=== PATIENT | male | born 1980 | race Caucasian/White ===

== ENCOUNTER 2016-12-02 22:59 | Emergency (ER) | payer OTHER ==
[2016-12-02 23:12] VITALS: BP 163/93
[2016-12-02] MEDS ORDERED: Ketorolac 30 MG/ML SDV IVPUSH ONE (23:28)
[2016-12-02] MEDS ORDERED: Sodium Chloride 0.9% 10 ML Syringe FLUSH PRN (23:28)
[2016-12-02] MEDS ORDERED: Sodium Chloride 0.9% 1,000 ML IV SCH (23:30)
--- NOTE | 2016-12-02 23:42 | EDM.PDOC ---
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 He felt quite hot but not diaphoretic with it. No nausea or vomiting. The pain subsided after a few minutes he was able to carry on working until now. However he did have a great deal of difficulty getting his work. No radiation of pain into the back but he does feel going down to the bottom of his left testicle. No history of pain in similar location before. In 2008 he had onset of diverticulitis with perforation, had a colostomy for 5 months. He has had a right inguinal hernia repair with recurrence x2, he is going to be scheduling a third procedure for this. No recent illness, appetite and activities was normal during the day. No abdominal bloating or distention. Pain is still fairly strong and he would like something for pain. His last visit to emergency in September 2014 he had right lower quadrant abdominal pain, given a dose of Toradol with improvement. He elected to do watchful waiting I then further investigation, in mild elevation of lipase at 523 of the time but the pain subsided and did not come back. - Related Data Allergies/ADRs: Allergies Allergy/AdvReac Type Severity Reaction Status Date / Time morphine Allergy Severe Anaphylactic Verified 12/02/16 23:10 Shock Home Meds: Home Meds Hydrocodone/Acetaminophen [Hydrocodon-Acetaminophen 5-325] 1 - 2 each PO Q4H PRN #10 tablet 12/03/16 [Rx] Past Medical History Respiratory History: Reports: Other (see below) Other Respiratory History: alpha 1 def. 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 - Infectious Disease History Infectious Disease History: Reports: Chicken pox - Past Surgical History GI Surgical History: Reports: Colostomy (5 months), Hernia, abdominal, Hernia repair/other (And revision) Male Surgical History: Reports: None Social & Family History - Tobacco Use Smoking Status *Q: Current Every Day Smoker Years of Tobacco use: 18 Packs/Tins Daily: 0.7 Used Tobacco, but Quit: No Second Hand Smoke Exposure: No - Caffeine Use Caffeine Use: Reports: Soda - Alcohol Use Days Per Week of Alcohol Use: 1 Number of Drinks Per Day: 1 Total Drinks Per Week: 1 - Recreational Drug Use Recreational Drug Use: Yes Drug Use in Last 12 Months: Yes Recreational Drug Type: Reports: Marijuana/Hashish Recreational Drug Use Frequency: Weekly Recreational Drug Last Use: 12/02/2016 ED ROS GENERAL - Review of Systems Review Of Systems: See Below Constitutional: Reports: no symptoms. Denies: fever, chills HEENT: Reports: No symptoms Respiratory: Reports: No Symptoms Cardiovascular: Reports: No symptoms GI/Abdominal: Reports: Abdominal pain. Denies: Black stool, Bloody stool, Constipation, Diarrhea, Decreased appetite, Nausea, Vomiting : Reports: other (Pain radiating to left testicle) Musculoskeletal: Reports: no symptoms Skin: Reports: no symptoms Neurological: Reports: No Symptoms ED EXAM, GI/ABD - Physical Exam Exam: See Below Exam Limited By: No limitations General Appearance: alert, mild distress, other (Appears well, elevated systolic blood pressure otherwise vital signs normalNo difficulty speaking or breathing) Eyes: bilateral: normal appearance Ears: normal external exam Nose: normal inspection Throat/Mouth: Normal inspection Head: atraumatic, normocephalic Neck: supple, non-tender Respiratory/Chest: no respiratory distress, lungs clear, normal breath sounds, no accessory muscle use Cardiovascular: normal peripheral pulses, regular rate, rhythm GI/Abdominal: normal bowel sounds, soft, no distention, no mass, tenderness ( Left lower quadrant without guarding or rebound) (Male) Exam: Normal inspection, Other (Recurrent right inguinal hernia). No : Scrotum tenderness (R), Testicular mass, Testicular tenderness (L), Testicular tenderness (R) Back Exam: normal inspection, full range of motion Extremities: normal inspection, normal range of motion Neurological: alert, oriented, no motor/sensory deficits Psychiatric: normal affect, normal mood Skin Exam: Warm, Dry, Intact, No rash Course - Vital Signs Last Recorded V/S: Last Vital Signs Temp 36.0 C 12/02/16 23:12 Pulse 90 12/02/16 23:12 Resp 18 12/02/16 23:12 BP 163/93 H 12/02/16 23:12 Pulse Ox 98 12/02/16 23:12 - Orders/Labs/Meds Orders: Active Orders 24 hr Category Date Time Status Peripheral IV Care [RC] . DIRECTED Care 12/02/16 23:28 Active Peripheral IV Insertion Adult [OM.PC] Routine Oth 12/02/16 23:27 Ordered Labs: Laboratory Tests 12/02/16 12/02/16 12/02/16 Range/Units 23:28 23:28 23:50 WBC 8.3 (4.5-11.0) K/uL RBC 5.52 (4.30-5.90) M/uL Hgb 15.5 H (12.0-15.0) g/dL Hct 46.4 (40.0-54.0) % MCV 84 (80-98) fL MCH 28 (27-31) pg MCHC 33 (32-36) % Plt Count 339 (150-400) K/uL Sodium 142 (140-148) mmol/L Potassium 3.7 (3.6-5.2) mmol/L Chloride 104 (100-108) mmol/L Carbon Dioxide 25 (21-32) mmol/L Anion Gap 12.9 (5.0-14.0) mmol/L BUN 15 (7-18) mg/dL Creatinine 1.0 (0.8-1.3) mg/dL Est Cr Clr Drug Dosing 103.10 mL/min Estimated GFR (MDRD) > 60 (>60) Glucose 103 (74-106) mg/dL Calcium 8.3 L (8.5-10.1) mg/dL Total Bilirubin 0.7 (0.2-1.0) mg/dL AST 21 (15-37) U/L ALT 37 (12-78) U/L Alkaline Phosphatase 70 (46-116) U/L Total Protein 7.5 (6.4-8.2) g/dL Albumin 4.0 (3.4-5.0) g/dL Globulin 3.5 (2.3-3.5) g/dL Albumin/Globulin Ratio 1.1 L (1.2-2.2) Lipase 182 (73-393) U/L Urine Color Yellow Urine Appearance Clear Urine pH 5.0 (4.5-8.0) Ur Specific [place] 1.030 (1.008-1.030) Urine Protein Negative (NEGATIVE) mg/dL Urine Glucose (UA) Normal (NEGATIVE) mg/dL Urine Ketones Negative (NEGATIVE) mg/dL Urine Occult Blood Negative (NEGATIVE) Urine Nitrite Negative (NEGAITVE) Urine Bilirubin Negative (NEGATIVE) Urine Urobilinogen Normal (NORMAL) mg/dL Ur Leukocyte Esterase Negative (NEGATIVE) Urine RBC 0-5 (0-5) Urine WBC 0-5 (0-5) Ur Epithelial Cells Rare Amorphous Sediment Few Urine Bacteria Rare Urine Mucus Moderate Meds: Medications Discontinued Medications Generic Name Dose Route Start Last Admin Trade Name Freq PRN Reason Stop Dose Admin Sodium Chloride 1,000 mls @ 125 mls/hr 12/02/16 23:30 12/02/16 23:42 Normal Saline IV 125 mls/hr ASDIRECTED MAURIZIO Administration Ketorolac Tromethamine 30 mg 12/02/16 23:28 12/02/16 23:43 Toradol IVPUSH 12/02/16 23:29 30 mg ONETIME ONE Administration Sodium Chloride 10 ml 12/02/16 23:28 12/02/16 23:43 Saline Flush FLUSH 10 ml ASDIRECTED PRN Administration Keep Vein Open - Re-Assessments/Exams Free Text/Narrative Re-Assessment/Exam: 12/02/16 23:43 36-year-old male with sudden onset acute pain left lower quadrant, worse with palpation and movement, he put up with it for several hours of work before coming in. Pain is moderate currently Exam is unremarkable apart from mild tenderness left lower quadrant without any visible or palpable hernia or mass. Radiation to the left testicle but no abnormality on exam. Intravenous saline, Toradol 30 mg intravenous labs and urinalysis ordered 12/03/16 00:32 Pain is slightly improved, he is able to sleep at this point CBC normal hepatic profile normal urea creatinine normal urinalysis normal, lipase normal Differential diagnosis includes kidney stone, colitis, diverticulitis,, and others. However his benign abdominal exam together with his white count make diverticulitis less likely. Options include doing a CAT scan here or watchful waiting with pain medication which he elected the latter. See discharge instructions below Departure - Departure Time of Disposition: 00:39 Disposition: Admitted As Inpatient 67 Condition: good Clinical Impression: Left lower quadrant abdominal pain of unknown etiology Prescriptions: Hydrocodone/Acetaminophen [Hydrocodon-Acetaminophen 5-325] 1 - 2 each PO Q4H PRN #10 tablet PRN Reason: Moderate to severe pain Instructions: Abdominal Pain, Adult, [id number] Referrals: PCP,None [Primary Care Provider] - Forms: ED Department Discharge, Return to Work/School Form Additional Instructions: Based on examination tonight in with normal lab tests, it is unlikely that you have diverticulitis inflammation tonight. However it could be early and it is important for you get rechecked if her symptoms are worsening or not controllable with pain medication at home. Stick to a liquid diet only until you are better Get rechecked promptly if you have vomiting, high fevers, severe pain or other new symptoms - My Orders Last 24 Hours: My Active Orders 12/02/16 23:27 Peripheral IV Insertion Adult [OM.PC] Routine 12/02/16 23:28 Peripheral IV Care [RC] . DIRECTED - Assessment/Plan Last 24 Hours: My Active Orders 12/02/16 23:27 Peripheral IV Insertion Adult [OM.PC] Routine 12/02/16 23:28 Peripheral IV Care [RC] . DIRECTED
== END 2016-12-03 01:11 | disposition critical access hospital (66) ==
LOC: JP.ED 22:59
DX: R10.32 Left lower quadrant pain (principal); F17.210 Nicotine dependence, cigarettes, uncomplicated; Z88.5 Allergy status to narcotic agent; K21.9 Gastro-esophageal reflux disease without esophagitis
CPT/HCPCS: 36415; 80053; 81001; 83690; 85027; 96374; 99285; J1885; J7040; J7050

== ENCOUNTER 2016-12-11 08:36 | Day surgery (SDC) | payer OTHER ==
[~2016-12-11 08:36] MED LIST: Bupivacaine 0.5% 50 ML MDV ONE; Lidocaine 1% with EPINEPHrine 1:100,000 50 ML MDV ONE; Lidocaine 2% Jelly 10 ML Urojet ONE; Sodium Chloride 0.9% 1,000 ML IV SCH; ceFAZolin 2 GM in Premix Bag 1 BAG IV ONE
[2016-12-11] MEDS ORDERED: metroNIDAZOLE/Normal Saline 500 MG in Premix Bag 1 BAG IV ONE (09:00)
[2016-12-11] MEDS ORDERED: Propofol 200 MG/20 ML SDV ONE ×2 (09:38→09:56)
[2016-12-11] MEDS ORDERED: fentaNYL 100 MCG/2 ML SDV ONE (09:38)
[2016-12-11] MEDS ORDERED: Midazolam 1 MG/ML 2 ML SDV ONE (09:38)
[2016-12-11 11:43] VITALS: BP 117/65
--- NOTE | 2016-12-14 07:34 | OR ---
DATE OF PROCEDURE: 12/11/2016 PROCEDURE: Excision of thrombosed external hemorrhoid in conjunction with internal hemorrhoid. COMPLICATIONS: None. DOSIER OPERATOR: None. ANESTHESIA: MAC/local. PREOPERATIVE DIAGNOSIS: Thrombosed hemorrhoid less than 24 hours. POSTOPERATIVE DIAGNOSIS: Thrombosed hemorrhoid less than 24 hours. RISKS: Risks, benefits, alternatives, and limitations, including, but not limited to infection, bleeding, and wound formation were explained to the patient. We also discussed the fact his alpha-1 antitrypsin disorder, which can result in delayed wound healing. He was given alternatives to surgery, but declined these and understands these risks. PROCEDURE IN DETAIL: The patient was placed in prone position. The hemorrhoid which was readily palpated noted to be thrombosed was identified. This was anesthetized with 1% lidocaine. This was excised in conjunction with the internal hemorrhoid in a stephan-type fashion. This was then thoroughly irrigated. This was closed with 3-0 Vicryl in conjunction with 4-0 chromic in a running locked fashion. Gelfoam was placed in the rectum with lidocaine topical. The nursing staff instructed to inform the patient that this remains in for 24 hours. The patient tolerated the procedure well. Juanjose Nesbitt MD /[id number]
== END 2016-12-11 11:35 | disposition home or self-care (01) ==
LOC: JP.SDS 08:36
PROVIDERS: ATTEND Surgery
DX: K64.5 Perianal venous thrombosis (principal); K21.9 Gastro-esophageal reflux disease without esophagitis; E88.01 Alpha-1-antitrypsin deficiency; F17.200 Nicotine dependence, unspecified, uncomplicated
CPT/HCPCS: 46255; J0690; J2250; J2704; J3010; J7040; 88304

== ENCOUNTER 2018-03-01 22:31 | Emergency (ER) | payer MEDICAID ==
[2018-03-01 22:52] VITALS: BP 146/94
[2018-03-01] MEDS ORDERED: Ketorolac 60 MG/2 ML SDV IM ONE (23:17)
--- NOTE | 2018-03-01 23:26 | EDM.PDOC ---
ED HPI GENERAL MEDICAL PROBLEM - General Chief Complaint: Abdominal Pain Stated Complaint: PAIN IN STOMACH AREA Time Seen by Provider: 03/01/18 23:15 Source of Information: Reports: Patient, Old Records, RN History Limitations: Reports: No Limitations - History of Present Illness INITIAL COMMENTS - FREE TEXT/NARRATIVE: 37 yo male here with RLQ abdominal pain that waxes and wanes since its onset earlier tonight. Pain does radiate to his R testicle. No hematuria or hx of kidney stones. No fever. No nausea. Was sweaty when the pain was at its worst. No change in bowels. Has a pHx of a ventral hernia and a ruptured colon(from diverticulitis) requiring colostomy and later reversal. Onset: Today Onset Date: 03/01/18 Onset Time: 19:30 Duration: Waxing/Waning Location: Reports: Abdomen (RLQ) Quality: Reports: Sharp Severity: Moderate Improves with: Reports: Other (unknown) Worsens with: Reports: Other (unknown) Context: Reports: Other (unknown) Associated Symptoms: Reports: Diaphoresis (now gone). 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 (see below) (none) Right Lower Abdominal Pain Score (Numeric/FACES): 7 - Related Data Allergies Allergy/AdvReac Type Severity Reaction Status Date / Time morphine Allergy Severe Anaphylactic Verified 03/01/18 22:58 Shock Home Meds: Home Meds NK [No Known Home Meds] 03/01/18 [History] Past Medical History Respiratory History: Reports: Other (See Below) Other Respiratory History: ALPHA 1 DEFECIENCY Gastrointestinal History: Reports: Diverticulosis, GERD, Hemorrhoids Musculoskeletal History: Reports: Back Pain, Chronic, Osteoporosis, Other (See Below) Other Musculoskeletal History: anklotisis spondalitis Neurological History: Reports: Head Trauma, Migraines Psychiatric History: Reports: Addiction Endocrine/Metabolic History: Reports: Obesity/BMI 30+ Dermatologic History: Reports: Other (See Below) Other Dermatologic History: luz danlows syndrome - Infectious Disease History Infectious Disease History: Reports: Chicken Pox - Past Surgical History GI Surgical History: Reports: Colostomy, Hernia, Abdominal, Hernia Repair/Other Male Surgical History: Reports: None Endocrine Surgical History: Reports: None Musculoskeletal Surgical History: Reports: Carpal Tunnel Social & Family History - Tobacco Use Smoking Status *Q: Current Every Day Smoker Years of Tobacco use: 16 Packs/Tins Daily: 1 - Caffeine Use Caffeine Use: Reports: Soda - Recreational Drug Use Recreational Drug Use: Yes Drug Use in Last 12 Months: Yes Recreational Drug Type: Reports: Marijuana/Hashish 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 Recreational Drug Use Frequency: Daily ED ROS GENERAL - Review of Systems Review Of Systems: See Below Constitutional: Reports: Diaphoresis (now gone) HEENT: Reports: No Symptoms Respiratory: Reports: No Symptoms Cardiovascular: Reports: No Symptoms GI/Abdominal: Reports: Abdominal Pain (RLQ) : Reports: Other (pain radiates to R testicle.) Musculoskeletal: Reports: No Symptoms Skin: Reports: No Symptoms Neurological: Reports: No Symptoms ED EXAM, GI/ABD - Physical Exam Exam: See Below Exam Limited By: No Limitations General Appearance: Alert, WD/WN, No Apparent Distress Eyes: Bilateral: Normal Appearance Ears: Normal External Exam, Normal Canal, Hearing Grossly Normal Nose: Normal Inspection, Normal Mucosa, No Blood Throat/Mouth: Normal Inspection, Normal Lips, Normal Oropharynx, Normal Voice, No Airway Compromise Head: Atraumatic, Normocephalic Neck: Normal Inspection Respiratory/Chest: No Respiratory Distress, Lungs Clear, Normal Breath Sounds, No Accessory Muscle Use Cardiovascular: Regular Rate, Rhythm, No Edema GI/Abdominal Exam: Normal Bowel Sounds, Soft, No Distention, Tender (mild RLQ pain, not significantly worse with palpation. ) (Male) Exam: No Hernia, Normal Inspection. No: Testicular Tenderness (R) Back Exam: Normal Inspection Extremities: Normal Inspection, Normal Range of Motion, Non-Tender, No Pedal Edema Neurological: Alert, Oriented, CN II-XII Intact, Normal Cognition, No Motor/ Sensory Deficits Psychiatric: Normal Affect, Normal Mood Skin Exam: Warm, Dry, Intact, Normal Color, No Rash Lymphatic: No Adenopathy Course - Vital Signs Text/Narrative:: Pain mostly gone after Toradol. Last Recorded V/S: Last Vital Signs Temp 36.0 C 03/01/18 23:00 Pulse 88 03/01/18 23:00 Resp 15 03/01/18 23:00 BP 146/94 H 03/01/18 23:00 Pulse Ox 98 03/01/18 23:00 - Orders/Labs/Meds Orders: Active Orders 24 hr Category Date Time Status UA W/MICROSCOPIC [URIN] Stat Lab 03/02/18 00:22 Ordered Labs: Laboratory Tests 03/02/18 03/02/18 Range/Units 00:22 01:00 WBC 7.0 (4.5-11.0) K/uL RBC 4.89 (4.30-5.90) M/uL Hgb 14.2 (12.0-15.0) g/dL Hct 42.2 (40.0-54.0) % MCV 86 (80-98) fL MCH 29 (27-31) pg MCHC 34 (32-36) % Plt Count 298 (150-400) K/uL Urine Color Yellow Urine Appearance Clear Urine pH 5.0 (4.5-8.0) Ur Specific [place] 1.025 (1.008-1.030) Urine Protein Negative (NEGATIVE) mg/dL Urine Glucose (UA) Normal (NEGATIVE) mg/dL Urine Ketones Negative (NEGATIVE) mg/dL Urine Occult Blood Negative (NEGATIVE) Urine Nitrite Negative (NEGAITVE) Urine Bilirubin Negative (NEGATIVE) Urine Urobilinogen 1 (NORMAL) mg/dL Ur Leukocyte Esterase Negative (NEGATIVE) Urine RBC 0-5 (0-5) Urine WBC 0-5 (0-5) Ur Epithelial Cells Rare Amorphous Sediment Not seen Urine Bacteria Few Urine Mucus Not seen Meds: Medications Discontinued Medications Generic Name Dose Route Start Last Admin Trade Name Freq PRN Reason Stop Dose Admin Ketorolac Tromethamine 60 mg 03/01/18 23:17 03/01/18 23:24 Toradol IM 03/01/18 23:18 60 mg ONETIME ONE Administration Departure - Departure Time of Disposition: 01:09 Disposition: Home, Self-Care 01 Condition: Good Clinical Impression: Abdominal pain, RLQ - Discharge Information Referrals: PCP,None [Primary Care Provider] - Forms: ED Department Discharge - My Orders Last 24 Hours: My Active Orders 03/02/18 00:22 UA W/MICROSCOPIC [URIN] Stat - Assessment/Plan Last 24 Hours: My Active Orders 03/02/18 00:22 UA W/MICROSCOPIC [URIN] Stat
== END 2018-03-02 01:16 | disposition home or self-care (01) ==
LOC: JP.ED 22:31
DX: R10.31 Right lower quadrant pain (principal); F17.210 Nicotine dependence, cigarettes, uncomplicated; K21.9 Gastro-esophageal reflux disease without esophagitis; Z88.5 Allergy status to narcotic agent
CPT/HCPCS: 36415; 81001; 85027; 96372; 99284; J1885

== ENCOUNTER 2019-03-10 06:21 | Day surgery (SDC) | payer MEDICAID ==
[2019-03-10] MEDS ORDERED: Lidocaine 1% with EPINEPHrine 1:100,000 50 ML MDV ONE (06:34)
[2019-03-10] MEDS ORDERED: Bupivacaine 0.5% 50 ML MDV ONE (06:34)
[2019-03-10] MEDS ORDERED: Propofol 200 MG/20 ML SDV ONE (07:21)
[2019-03-10] MEDS ORDERED: Glycopyrrolate 0.2 MG/ML 5 ML MDV ONE (07:21)
[2019-03-10] MEDS ORDERED: Dexamethasone 4 MG/ML SDV ONE (07:21)
[2019-03-10] MEDS ORDERED: Midazolam 1 MG/ML 2 ML SDV ONE (07:21)
[2019-03-10] MEDS ORDERED: fentaNYL 250 MCG/5 ML SDV ONE (07:21)
[2019-03-10] MEDS ORDERED: Ondansetron 4 MG/2 ML SDV ONE (07:21)
[2019-03-10] MEDS ORDERED: Neostigmine Methylsulfate 1 MG/ML 5 ML Syringe ONE (07:21)
[2019-03-10] MEDS ORDERED: Rocuronium 50 MG/5 ML Vial ONE (07:21)
[2019-03-10] MEDS ORDERED: Sodium Chloride 0.9% 1,000 ML IV SCH (07:30)
[2019-03-10] MEDS ORDERED: ceFAZolin 2 GM in Premix Bag 1 BAG IV ONE (08:00)
[2019-03-10] MEDS ORDERED: metroNIDAZOLE/Normal Saline 500 MG in Premix Bag 1 BAG IV ONE (08:30)
[2019-03-10] MEDS ORDERED: Acetaminophen/HYDROcodone 325-5 MG Tab PO PRN (10:15)
--- NOTE | 2019-03-10 11:28 | OR ---
DATE OF PROCEDURE: 03/10/2019 PROCEDURE: Right inguinal hernia repair. FINDINGS: Non-incarcerated indirect hernia. RISKS: Risks, benefits, alternatives, and limitations including, but not limited to, infection, bleeding, and injury to bowel and bladder, requirement for reoperation, seroma, and hematoma were all explained to the patient who wished to proceed. ANESTHETIC: General/local. PROCEDURE IN DETAIL: The patient was placed in supine position. The right groin was prepped and draped. A curvilinear incision was made of approximately 5 cm in size. This was carried down to the external oblique aponeurosis. This was opened with a 15 blade and subsequently with Metzenbaum scissors. There was significant scarring due to his previous abdominal surgery in this area. The cord structures were identified and surrounded with a [place] drain. The hernia was readily identified and able to be reduced. An extra-large plug and patch was then sutured into place using interrupted 2-0 Vicryl sutures. The mesh was also stitched in proximity to the pubic symphysis and around it approximately 1 cm aliquots. The tails were tied together. The external oblique aponeurosis was then approximated with 3-0 Vicryl, subcutaneous tissue closed with 3-0 Vicryl, and skin was closed with 4-0 Vicryl in running fashion. Dermabond was applied. The patient tolerated the procedure well. Juanjose Nesbitt MD /[id number]
--- NOTE | 2019-03-10 11:55 | OR ---
DATE OF PROCEDURE: 03/10/2019 PROCEDURE: Bilateral transversus abdominis plane blocks. COMPLICATIONS: None. RESIDENT CARE MANAGER RN: None. RISKS: Risks, benefits, alternatives, and limitations including, but not limited to infection, bleeding, and injury to abdominal structures were explained to the patient. PROCEDURE IN DETAIL: The patient was placed in supine position. The right side was addressed first. This was accessed using 11 megahertz ultrasound probe guidance. Needle was advanced under direct visualization and approximately 80% solution was injected in transversus plane. Left side was then performed in a same manner, same fashion, same technique, and same sequence using same equipment except for different needle and syringe. The patient tolerated the procedure well. Juanjose Nesbitt MD /[id number]
[2019-03-10 12:41] VITALS: BP 126/65
== END 2019-03-10 13:30 | disposition home or self-care (01) ==
LOC: JP.SDS 06:21
PROVIDERS: ATTEND Surgery
DX: K40.90 Unilateral inguinal hernia, without obstruction or gangrene, not specified as recurrent (principal); F17.210 Nicotine dependence, cigarettes, uncomplicated; G56.03 Carpal tunnel syndrome, bilateral upper limbs; E88.01 Alpha-1-antitrypsin deficiency; G89.18 Other acute postprocedural pain; M54.5 Low back pain; M45.9 Ankylosing spondylitis of unspecified sites in spine
CPT/HCPCS: 49505; 64488; A9270; C1781; J0171; J0690; J1100; J2250; J2405; J2704; J2710; J2795; J3010; J3490; J7030; J7050

== ENCOUNTER 2019-08-25 21:26 | Emergency (ER) | payer SELFPAY ==
[2019-08-25 21:47] VITALS: BP 126/73; PULSE 76
[2019-08-25] MEDS ORDERED: HYDROmorphone 0.5 MG/0.5 ML Syringe IVPUSH ONE (22:01)
--- NOTE | 2019-08-25 22:06 | EDM.PDOC ---
ED HPI GENERAL MEDICAL PROBLEM - General Chief Complaint: Abdominal Pain Stated Complaint: ABD PAIN Time Seen by Provider: 08/25/19 21:50 Source of Information: Reports: Patient, Old Records, RN History Limitations: Reports: No Limitations - History of Present Illness INITIAL COMMENTS - FREE TEXT/NARRATIVE: 39 yo male presents with RLQ/groin pain. Has had this intermittently in the past couple of years and it generally goes away by itself so he has not come in for it. Today his pain is worse and lasting longer. No vomiting, constipation, hematuria, diarrhea, or fever. Has a pHx of a ruptured diverticulum and resulting colostomy and later a reversal. Also has had 2 R inguinal hernia repairs. 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) (none) Abdominal Pain Score (Numeric/FACES): 7 - Related Data Allergies Allergy/AdvReac Type Severity Reaction Status Date / Time morphine Allergy Severe Anaphylactic Verified 08/25/19 21:41 Shock Home Meds: Home Meds NK [No Known Home Meds] 08/25/19 [History] Past Medical History Respiratory History: Reports: Other (See Below) Other Respiratory History: ALPHA 1 DEFECIENCY Gastrointestinal History: Reports: Diverticulosis, GERD, Hemorrhoids Musculoskeletal History: Reports: Back Pain, Chronic, Osteoporosis, Other (See Below) Other Musculoskeletal History: anklotisis spondalitis Neurological History: Reports: Head Trauma, Migraines Psychiatric History: Reports: Addiction Endocrine/Metabolic History: Reports: Obesity/BMI 30+ Dermatologic History: Reports: Other (See Below) Other Dermatologic History: luz danlows syndrome - Infectious Disease History Infectious Disease History: Reports: Chicken Pox - Past Surgical History GI Surgical History: Reports: Colostomy, Hernia Repair/Other Male Surgical History: Reports: None Endocrine Surgical History: Reports: None Neurological Surgical History: Reports: None Musculoskeletal Surgical History: Reports: Carpal Tunnel Social & Family History - Family History Family Medical History: Noncontributory - Tobacco Use Smoking Status *Q: Current Every Day Smoker Years of Tobacco use: 20 Packs/Tins Daily: 0.5 - Caffeine Use Caffeine Use: Reports: Soda - Recreational Drug Use Recreational Drug Use: Yes Drug Use in Last 12 Months: Yes Recreational Drug Type: Reports: Marijuana/Hashish Recreational Drug Use Frequency: Daily ED ROS GENERAL - Review of Systems Review Of Systems: See Below Constitutional: Reports: No Symptoms HEENT: Reports: No Symptoms Respiratory: Reports: No Symptoms Cardiovascular: Reports: No Symptoms GI/Abdominal: Reports: Abdominal Pain (RLQ). Denies: Black Stool, Bloody Stool , Constipation, Diarrhea, Distension, Hematemesis, Hematochezia, Melena, Nausea , Vomiting : Reports: No Symptoms. Denies: Dysuria, Hematuria Musculoskeletal: Reports: No Symptoms Skin: Reports: No Symptoms Neurological: Reports: No Symptoms ED EXAM, GI/ABD - Physical Exam Exam: See Below Exam Limited By: No Limitations General Appearance: Alert, WD/WN, No Apparent Distress, Obese Eyes: Bilateral: Normal Appearance Ears: Hearing Grossly Normal Nose: Normal Inspection, No Blood Throat/Mouth: Normal Inspection, Normal Lips, Normal Oropharynx, Normal Voice, No Airway Compromise Head: Atraumatic, Normocephalic Neck: Normal Inspection Respiratory/Chest: No Respiratory Distress, Lungs Clear, Normal Breath Sounds, No Accessory Muscle Use Cardiovascular: Regular Rate, Rhythm, No Edema GI/Abdominal Exam: Normal Bowel Sounds, Soft, No Distention, Tender (RLQ), Abnormal Bowel Sounds (decreased), Other (obese). No: Non-Tender, Distended, Guarding, Rigid, Rebound Extremities: Normal Inspection, Normal Range of Motion, Non-Tender, No Pedal Edema Neurological: Alert, Oriented, CN II-XII Intact, Normal Cognition, No Motor/ Sensory Deficits Psychiatric: Normal Affect, Normal Mood Skin Exam: Warm, Dry, Intact, Normal Color, No Rash, Other (surgical scar R groin, old) Course - Vital Signs Last Recorded V/S: Last Vital Signs Temp 35.9 C 08/25/19 21:41 Pulse 76 08/25/19 21:41 Resp 16 08/25/19 21:41 BP 126/73 08/25/19 21:41 Pulse Ox 95 08/25/19 21:41 - Orders/Labs/Meds Orders: Active Orders 24 hr Category Date Time Status Iopamidol [Isovue-300 (61%)] Med 08/25/19 22:30 Active 100 ml IV . DIRECTED Sodium Chloride 0.9% [Normal Saline] 80 ml Med 08/25/19 22:30 Active IV ASDIRECTED Sodium Chloride 0.9% [Saline Flush] Med 08/25/19 22:00 Active 10 ml FLUSH ASDIRECTED PRN Saline Lock Insert [OM.PC] Routine Oth 08/25/19 22:00 Ordered Medication Orders Sodium Chloride (Normal Saline) 80 mls @ 3 mls/sec IV ASDIRECTED MAURIZIO Last Admin: 08/25/19 22:34 Dose: 3 mls/sec Iopamidol (Isovue-300 (61%)) 100 ml IV . DIRECTED MAURIZIO Last Admin: 08/25/19 22:34 Dose: 100 ml Sodium Chloride (Saline Flush) 10 ml FLUSH ASDIRECTED PRN PRN Reason: Keep Vein Open Last Admin: 08/25/19 22:34 Dose: 10 ml Admin: 08/25/19 22:10 Dose: 10 ml Labs: Laboratory Tests 08/25/19 08/25/19 08/25/19 Range/Units 22:08 22:08 23:52 WBC 8.9 (4.5-11.0) K/uL RBC 5.31 (4.30-5.90) M/uL Hgb 14.7 (12.0-15.0) g/dL Hct 45.7 (40.0-54.0) % MCV 86 (80-98) fL MCH 28 (27-31) pg MCHC 32 (32-36) % Plt Count 326 (150-400) K/uL Sodium 139 L (140-148) mmol/L Potassium 3.8 (3.6-5.2) mmol/L Chloride 102 (100-108) mmol/L Carbon Dioxide 26 (21-32) mmol/L Anion Gap 14.8 H (5.0-14.0) mmol/L BUN 19 H (7-18) mg/dL Creatinine 1.2 (0.8-1.3) mg/dL Est Cr Clr Drug Dosing 83.47 mL/min Estimated GFR (MDRD) > 60 (>60) Glucose 81 (74-106) mg/dL Calcium 8.6 (8.5-10.1) mg/dL Urine Color Yellow (YELLOW) Urine Appearance Clear (CLEAR) Urine pH 5.0 (5.0-8.0) Ur Specific [place] 1.010 (1.008-1.030) Urine Protein Negative (NEGATIVE) mg/dL Urine Glucose (UA) Negative (NEGATIVE) mg/dL Urine Ketones Negative (NEGATIVE) mg/dL Urine Occult Blood Negative (NEGATIVE) Urine Nitrite Negative (NEGATIVE) Urine Bilirubin Negative (NEGATIVE) Urine Urobilinogen 0.2 (0.2-1.0) EU/dL Ur Leukocyte Esterase Negative (NEGATIVE) Urine RBC 0-5 (0-5) Urine WBC 0-5 (0-5) Ur Epithelial Cells Rare Amorphous Sediment Not seen Urine Bacteria Not seen Urine Mucus Not seen Meds: Medications Generic Name Dose Route Start Last Admin Trade Name Freq PRN Reason Stop Dose Admin Sodium Chloride 80 mls @ 3 mls/sec 08/25/19 22:30 08/25/19 22:34 Normal Saline IV 3 mls/sec ASDIRECTED MAURIZIO Administration Iopamidol 100 ml 08/25/19 22:30 08/25/19 22:34 Isovue-300 (61%) IV 100 ml . DIRECTED MAURIZIO Administration Sodium Chloride 10 ml 08/25/19 22:00 08/25/19 22:34 Saline Flush FLUSH 10 ml ASDIRECTED PRN Administration Keep Vein Open Discontinued Medications Generic Name Dose Route Start Last Admin Trade Name Freq PRN Reason Stop Dose Admin Hydromorphone HCl 0.5 mg 08/25/19 22:01 08/25/19 22:10 Dilaudid IVPUSH 08/25/19 22:02 0.5 mg ONETIME ONE Administration Lactated Ringer's 1,000 mls @ 1,000 mls/hr 08/25/19 22:41 08/25/19 22:46 Ringers, Lactated IV 08/25/19 23:40 1,000 mls/hr BOLUS ONE Administration - Radiology Interpretation Free Text/Narrative:: CT abd/pelvs with IV contrast-IMPRESSION: No acute abnormality identified to explain the patient`s symptoms. Please note that all CT scans at this facility use dose modulation, iterative reconstruction, and/or weight-based dosing when appropriate to reduce radiation dose to as low as reasonably achievable. Dictated by Christa Tello MD CT Results Date: 08/25/19 Departure - Departure Time of Disposition: 00:13 Disposition: Home, Self-Care 01 Condition: Fair Clinical Impression: RLQ abdominal pain - Discharge Information *PRESCRIPTION DRUG MONITORING PROGRAM REVIEWED*: No *COPY OF PRESCRIPTION DRUG MONITORING REPORT IN PATIENT JUJU: No Instructions: Abdominal Pain, Adult, [id number] Referrals: PCP,None [Primary Care Provider] - Forms: ED Department Discharge Additional Instructions: Clear liquids only tonight. Advance diet as tolerated. F/U with your provider next week in the clinic. Return as needed. Sepsis Event Note - Evaluation Sepsis Screening Result: No Definite Risk - Focused Exam Vital Signs: Vital Signs Temp Pulse Resp BP Pulse Ox 08/25/19 21:41 35.9 C 76 16 126/73 95 08/25/19 21:40 35.9 C 76 16 126/73 95 Date Exam was Performed: 08/26/19 Time Exam was Performed: 00:13 - My Orders Last 24 Hours: My Active Orders 08/25/19 22:00 Sodium Chloride 0.9% [Saline Flush] 10 ml FLUSH ASDIRECTED PRN Saline Lock Insert [OM.PC] Routine 08/25/19 22:30 Iopamidol [Isovue-300 (61%)] 100 ml IV . DIRECTED Sodium Chloride 0.9% [Normal Saline] 80 ml IV ASDIRECTED - Assessment/Plan Last 24 Hours: My Active Orders 08/25/19 22:00 Sodium Chloride 0.9% [Saline Flush] 10 ml FLUSH ASDIRECTED PRN Saline Lock Insert [OM.PC] Routine 08/25/19 22:30 Iopamidol [Isovue-300 (61%)] 100 ml IV . DIRECTED Sodium Chloride 0.9% [Normal Saline] 80 ml IV ASDIRECTED
[2019-08-25] MEDS: Sodium Chloride 0.9% 10 ML Syringe FLUSH PRN ×2 (22:10→22:34)
[2019-08-25] MEDS ORDERED: Iopamidol 612 MG/ML 100 ML Bottle IV SCH (22:30)
[2019-08-25] MEDS ORDERED: Sodium Chloride 0.9% 80 ML IV SCH (22:30)
[2019-08-25] MEDS ORDERED: Lactated Ringers 1,000 ML IV ONE (22:41)
--- NOTE | 2019-08-25 23:23 | CRLCT ---
HISTORY: Right lower quadrant pain. COMPARISON: 03/03/2019. TECHNIQUE: Axial images were obtained through the abdomen and pelvis following 100 cc of Isovue-300 intravenous contrast. FINDINGS: The lung bases are clear. The liver, small pancreas, gallbladder, adrenal glands and kidneys are within normal. The appendix is normal in caliber. No evidence for bowel obstruction or bowel hernia. Rectosigmoid anastomosis. No evidence for lymphadenopathy or ascites. The bones within normal. IMPRESSION: No acute abnormality identified to explain the patient`s symptoms. Please note that all CT scans at this facility use dose modulation, iterative reconstruction, and/or weight-based dosing when appropriate to reduce radiation dose to as low as reasonably achievable. Dictated by Christa Tello MD @ Aug 25 2019 11:15PM Signed by Dr. Christa Tello @ Aug 25 2019 11:21PM
== END 2019-08-26 00:27 | disposition home or self-care (01) ==
LOC: JP.ED 21:26
DX: R10.31 Right lower quadrant pain (principal); E66.9 Obesity, unspecified; Z68.38 Body mass index [BMI] 38.0-38.9, adult; Z88.5 Allergy status to narcotic agent; F17.210 Nicotine dependence, cigarettes, uncomplicated
CPT/HCPCS: 36415; 74177; 80048; 81001; 85027; 96361; 96374; 99284-25; J1170; J7050; J7120; Q9967

== ENCOUNTER 2020-01-04 19:42 | Emergency (ER) | payer MEDICAID ==
[2020-01-04 19:59] VITALS: BP 166/99; PULSE 71
[2020-01-04] MEDS ORDERED: Baclofen 10 MG Tab PO ONE (20:11)
[2020-01-04] MEDS ORDERED: Ketorolac 60 MG/2 ML SDV IM ONE (20:11)
--- NOTE | 2020-01-04 20:19 | EDM.PDOC ---
ED HPI GENERAL MEDICAL PROBLEM - General Chief Complaint: Lower Extremity Injury/Pain Stated Complaint: L CALF PAIN Time Seen by Provider: 01/04/20 20:14 Source of Information: Reports: Patient History Limitations: Reports: No Limitations - History of Present Illness INITIAL COMMENTS - FREE TEXT/NARRATIVE: pt was playing basketball at [employer] and he jumped up and developed severe pain in the left calf of his leg. He is not on blood thinners. He does have some very large varicosities. Onset: Today, Sudden Duration: Hour(s): Location: Reports: Lower Extremity, Right Associated Symptoms: Reports: No Other Symptoms - Related Data Allergies Allergy/AdvReac Type Severity Reaction Status Date / Time morphine Allergy Severe Anaphylactic Verified 01/04/20 19:56 Shock Home Meds: Home Meds NK [No Known Home Meds] 08/25/19 [History] Past Medical History Respiratory History: Reports: Other (See Below) Other Respiratory History: ALPHA 1 DEFECIENCY Gastrointestinal History: Reports: Diverticulosis, GERD, Hemorrhoids Musculoskeletal History: Reports: Back Pain, Chronic, Osteoporosis, Other (See Below) Other Musculoskeletal History: anklotisis spondalitis Neurological History: Reports: Head Trauma, Migraines Psychiatric History: Reports: Addiction Endocrine/Metabolic History: Reports: Obesity/BMI 30+ Dermatologic History: Reports: Other (See Below) Other Dermatologic History: luz danlows syndrome - Infectious Disease History Infectious Disease History: Reports: Chicken Pox - Past Surgical History GI Surgical History: Reports: Colonoscopy, Colostomy, Hernia Repair/Other, Other (See Below) Other GI Surgeries/Procedures: colostomy take down Male Surgical History: Reports: None Endocrine Surgical History: Reports: None Neurological Surgical History: Reports: None Musculoskeletal Surgical History: Reports: Carpal Tunnel Social & Family History - Family History Family Medical History: Noncontributory - Tobacco Use Smoking Status *Q: Current Every Day Smoker Years of Tobacco use: 20 Packs/Tins Daily: 0.5 - Caffeine Use Caffeine Use: Reports: Soda - Recreational Drug Use Recreational Drug Use: Yes Recreational Drug Type: Reports: Marijuana/Hashish, Methamphetamine Recreational Drug Use Frequency: Daily Review of Systems - Review of Systems Review Of Systems: See Below Constitutional: Reports: No Symptoms Eyes: Reports: No Symptoms Ears: Reports: No Symptoms Nose: Reports: No Symptoms Mouth/Throat: Reports: No Symptoms Respiratory: Reports: No Symptoms Cardiovascular: Reports: No Symptoms GI/Abdominal: Reports: No Symptoms Genitourinary: Reports: No Symptoms Musculoskeletal: Reports: Other ( pain in the rt calf of the leg. ) Skin: Reports: No Symptoms Neurological: Reports: No Symptoms ED EXAM, GENERAL - Physical Exam Exam: See Below Free Text/Narrative:: pt arrived having severe pain in the rt calf. It feels very tight. He is having alot of pain when he walks on it . It started when he jumped up quickly. Exam Limited By: No Limitations General Appearance: Alert, Anxious Extremities: Other ( rt calf is tight and very tender. It measures the same as his other calf. He has good pulses and his foot is warm. ) Neurological: Alert, Oriented, Normal Cognition Psychiatric: Anxious Course - Vital Signs Last Recorded V/S: Last Vital Signs Temp 36.8 C 01/04/20 20:00 Pulse 71 01/04/20 20:00 Resp 16 01/04/20 20:00 BP 166/99 H 01/04/20 20:00 Pulse Ox 94 L 01/04/20 20:00 - Orders/Labs/Meds Orders: Active Orders 24 hr Category Date Time Status VL Duplex Lwr Ext Veins Ltd Lt [US] Stat Exams 01/04/20 20:10 Ordered Meds: Medications Discontinued Medications Generic Name Dose Route Start Last Admin Trade Name Freq PRN Reason Stop Dose Admin Baclofen 10 mg 01/04/20 20:11 01/04/20 20:26 Lioresal PO 01/04/20 20:12 10 mg ONETIME ONE Administration Ketorolac Tromethamine 60 mg 01/04/20 20:11 01/04/20 20:26 Toradol IM 01/04/20 20:12 60 mg ONETIME ONE Administration - Re-Assessments/Exams Free Text/Narrative Re-Assessment/Exam: 01/04/20 21:14 pt had a US which showed a fluid collection-- He has a hematoma forming. Departure - Departure Time of Disposition: 21:15 Disposition: Home, Self-Care 01 Condition: Fair Clinical Impression: Hematoma of lower leg - Discharge Information Referrals: PCP,None [Primary Care Provider] - Forms: ED Department Discharge Care Plan Goals: ice pack to the calf for the next 24 hours. , elevate the leg, tylenol 650 q6h prn for pain. tonight then start motrin 800mg q6h. crutches. Sepsis Event Note - Evaluation Sepsis Screening Result: No Definite Risk - Focused Exam Vital Signs: Vital Signs Temp Pulse Resp BP Pulse Ox 01/04/20 20:00 36.8 C 71 16 166/99 H 94 L 01/04/20 19:55 36.8 C 71 16 166/99 H 94 L Date Exam was Performed: 01/04/20 Time Exam was Performed: 21:14 - My Orders Last 24 Hours: My Active Orders 01/04/20 20:10 VL Duplex Lwr Ext Veins Ltd Lt [US] Stat - Assessment/Plan Last 24 Hours: My Active Orders 01/04/20 20:10 VL Duplex Lwr Ext Veins Ltd Lt [US] Stat
--- NOTE | 2020-01-04 21:41 | CRLUS ---
INDICATION: Severe left calf pain. COMPARISON: None available. FINDINGS: Ultrasound of the venous drainage of the left lower extremity shows no evidence of deep venous thrombosis. There is normal antegrade flow from the posterior tibial and peroneal veins superiorly through the common femoral vein. There is normal augmentation and compressibility of these veins. The greater saphenous vein in the thigh is widely patent. In the medial distal calf in the area of pain there is a thin fluid collection without increased color Doppler flow located within the muscle belly. This measures 8.4 x 1.0 x 0.8 centimeters and may be an intramuscular or tendon sheath hematoma. The right common femoral vein is widely patent. IMPRESSION: No evidence of deep venous thrombosis on ultrasound examination of the left lower extremity. Fluid collection located within the muscularis structures of the medial distal calf in the area pain. Nonspecific, but could represent intramuscular or tendon sheath hematoma. Dictated by Zackery Gonzalez MD @ Jan 04 2020 9:37PM Signed by Dr. Zackery Gonzalez @ Jan 04 2020 9:40PM
== END 2020-01-04 21:45 | disposition home or self-care (01) ==
LOC: JP.ED 19:42
DX: S80.12XA Contusion of left lower leg, initial encounter (principal); E66.9 Obesity, unspecified; F17.210 Nicotine dependence, cigarettes, uncomplicated; Z88.5 Allergy status to narcotic agent; Z68.38 Body mass index [BMI] 38.0-38.9, adult; W22.8XXA Striking against or struck by other objects, initial encounter
CPT/HCPCS: 93971; 96372; 99283; A9270; J1885

== ENCOUNTER 2020-01-29 13:28 | Emergency (ER) | payer MEDICAID ==
[2020-01-29 14:00] VITALS: BP 148/79; PULSE 81
--- NOTE | 2020-01-29 14:20 | EDM.PDOC ---
ED HPI GENERAL MEDICAL PROBLEM - General Chief Complaint: Lower Extremity Injury/Pain Stated Complaint: LEFT LEG ISSUES- REDNESS,SWELLING Time Seen by Provider: 01/29/20 14:13 Source of Information: Reports: Patient History Limitations: Reports: No Limitations - History of Present Illness INITIAL COMMENTS - FREE TEXT/NARRATIVE: Patient comes here from residential chemical dependency treatment. 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 Left Feet Pain Score (Numeric/FACES): 6 - Related Data Allergies Allergy/AdvReac Type Severity Reaction Status Date / Time morphine Allergy Severe Anaphylactic Verified 01/04/20 19:56 Shock Home Meds: Home Meds Amoxicillin 500 mg PO TID 01/29/20 [History] Doxycycline [Vibramycin] 100 mg PO BID 10 Days #20 cap 01/29/20 [Rx] Past Medical History Respiratory History: Reports: Other (See Below) Other Respiratory History: ALPHA 1 DEFECIENCY Gastrointestinal History: Reports: Diverticulosis, GERD, Hemorrhoids Musculoskeletal History: Reports: Back Pain, Chronic, Osteoporosis, Other (See Below) Other Musculoskeletal History: anklotisis spondalitis Neurological History: Reports: Head Trauma, Migraines Psychiatric History: Reports: Addiction Endocrine/Metabolic History: Reports: Obesity/BMI 30+ Dermatologic History: Reports: Other (See Below) Other Dermatologic History: luz danlows syndrome - Infectious Disease History Infectious Disease History: Reports: Chicken Pox - Past Surgical History GI Surgical History: Reports: Colonoscopy, Colostomy, Hernia Repair/Other, Other (See Below) Other GI Surgeries/Procedures: colostomy take down Male Surgical History: Reports: None Endocrine Surgical History: Reports: None Neurological Surgical History: Reports: None Musculoskeletal Surgical History: Reports: Carpal Tunnel Social & Family History - Family History Family Medical History: Noncontributory - Tobacco Use Smoking Status *Q: Heavy Tobacco Smoker Years of Tobacco use: 15 Packs/Tins Daily: 1 - Caffeine Use Caffeine Use: Reports: Coffee - Recreational Drug Use Recreational Drug Use: No Review of Systems - Review of Systems Review Of Systems: See Below Constitutional: Denies: Chills, Fever Ears: Denies: Dizziness Respiratory: Reports: No Symptoms Cardiovascular: Reports: No Symptoms GI/Abdominal: Reports: No Symptoms Musculoskeletal: Reports: Leg Pain, Joint Swelling (Swelling of left ankle and foot) ED EXAM, GENERAL - Physical Exam Exam: See Below Exam Limited By: No Limitations General Appearance: Alert, Obese Nose: Normal Inspection Throat/Mouth: Normal Inspection Respiratory/Chest: No Respiratory Distress, Lungs Clear Cardiovascular: Normal Peripheral Pulses, Regular Rate, Rhythm GI/Abdominal: Soft, Non-Tender, Other (Obese) Extremities: Joint Swelling, Increased Warmth, Other (Marked erythema and swelling of his left foot especially as compared to the right. He also has tenderness on palpation of medial and lateral malleoli and the lateral proximal part of his leg.) Course - Vital Signs Text/Narrative:: differential diagnosis: Cellulitis, ankle fracture, ankle sprain, DVT, severe muscle strain. Ultrasound was negative for DVT. X-rays were negative for any fracture. Given the swelling, erythema, pain, and warmth of his right foot and ankle I am going to treat him for cellulitis with doxycycline. I have instructed him to stop amoxicillin. Last Recorded V/S: Last Vital Signs Temp 36.6 C 01/29/20 14:00 Pulse 81 01/29/20 14:00 Resp 16 01/29/20 14:00 BP 148/79 H 01/29/20 14:00 Pulse Ox 96 01/29/20 14:00 - Orders/Labs/Meds Orders: Active Orders 24 hr Category Date Time Status Extremity Non Vascular Lt [US] Stat Exams 01/29/20 15:58 Stop Req VL Duplex Lwr Ext Veins Ltd Lt [US] Stat Exams 01/29/20 16:08 Ordered Labs: Laboratory Tests 01/29/20 01/29/20 01/29/20 Range/Units 14:45 14:45 14:45 WBC 7.4 (4.5-11.0) K/uL RBC 4.88 (4.30-5.90) M/uL Hgb 13.7 (12.0-15.0) g/dL Hct 42.7 (40.0-54.0) % MCV 88 (80-98) fL MCH 28 (27-31) pg MCHC 32 (32-36) % Plt Count 332 (150-400) K/uL ESR 13 (0-20) mm/hr PT 9.7 (9.5-12.0) sec INR 0.89 (0.80-1.20) D-Dimer, Quantitative (0.0-400.0) ng/mL Sodium 138 L (140-148) mmol/L Potassium 4.2 (3.6-5.2) mmol/L Chloride 101 (100-108) mmol/L Carbon Dioxide 28 (21-32) mmol/L Anion Gap 13.2 (5.0-14.0) mmol/L BUN 17 (7-18) mg/dL Creatinine 1.2 (0.8-1.3) mg/dL Est Cr Clr Drug Dosing 83.47 mL/min Estimated GFR (MDRD) > 60 (>60) Glucose 93 (74-106) mg/dL Lactic Acid (0.4-2.0) mmol/L Calcium 8.8 (8.5-10.1) mg/dL Total Bilirubin 0.3 D (0.2-1.0) mg/dL AST 25 (15-37) U/L ALT 54 (12-78) U/L Alkaline Phosphatase 88 (46-116) U/L Total Protein 7.4 (6.4-8.2) g/dL Albumin 4.0 (3.4-5.0) g/dL Globulin 3.4 (2.3-3.5) g/dL Albumin/Globulin Ratio 1.2 (1.2-2.2) 01/29/20 01/29/20 Range/Units 14:45 14:45 WBC (4.5-11.0) K/uL RBC (4.30-5.90) M/uL Hgb (12.0-15.0) g/dL Hct (40.0-54.0) % MCV (80-98) fL MCH (27-31) pg MCHC (32-36) % Plt Count (150-400) K/uL ESR (0-20) mm/hr PT (9.5-12.0) sec INR (0.80-1.20) D-Dimer, Quantitative 417 H (0.0-400.0) ng/mL Sodium (140-148) mmol/L Potassium (3.6-5.2) mmol/L Chloride (100-108) mmol/L Carbon Dioxide (21-32) mmol/L Anion Gap (5.0-14.0) mmol/L BUN (7-18) mg/dL Creatinine (0.8-1.3) mg/dL Est Cr Clr Drug Dosing mL/min Estimated GFR (MDRD) (>60) Glucose (74-106) mg/dL Lactic Acid 0.8 (0.4-2.0) mmol/L Calcium (8.5-10.1) mg/dL Total Bilirubin (0.2-1.0) mg/dL AST (15-37) U/L ALT (12-78) U/L Alkaline Phosphatase (46-116) U/L Total Protein (6.4-8.2) g/dL Albumin (3.4-5.0) g/dL Globulin (2.3-3.5) g/dL Albumin/Globulin Ratio (1.2-2.2) Departure - Departure Time of Disposition: 17:22 Disposition: Home, Self-Care 01 Condition: Good Clinical Impression: Cellulitis of left foot - Discharge Information Prescriptions: Doxycycline [Vibramycin] 100 mg PO BID 10 Days #20 cap Instructions: Cellulitis, Adult Referrals: PCP,None [Primary Care Provider] - Forms: ED Department Discharge Additional Instructions: Take doxycycline twice a day. Stop amoxicillin. Follow with your primary care doctor this coming week. Sepsis Event Note - Evaluation Sepsis Screening Result: No Definite Risk - Focused Exam Vital Signs: Vital Signs Temp Pulse Resp BP Pulse Ox 01/29/20 14:00 36.6 C 81 16 148/79 H 96 01/29/20 13:51 36.6 C 81 16 148/79 H 96 Date Exam was Performed: 01/29/20 Time Exam was Performed: 17:24 - My Orders Last 24 Hours: My Active Orders 01/29/20 15:58 Extremity Non Vascular Lt [US] Stat 01/29/20 16:08 VL Duplex Lwr Ext Veins Ltd Lt [US] Stat - Assessment/Plan Last 24 Hours: My Active Orders 01/29/20 15:58 Extremity Non Vascular Lt [US] Stat 01/29/20 16:08 VL Duplex Lwr Ext Veins Ltd Lt [US] Stat
--- NOTE | 2020-01-29 16:00 | CRLCR ---
Indication: Pain and swelling Technique: Left tibia and fibula 4 views Comparison: None Findings: Bones: Alignment is normal. No fractures or bone lesions. Joint spaces: Unremarkable. Soft tissues: Unremarkable. Impression: Negative left tibia and fibula. Dictated by Alex Mitchell MD @ Jan 29 2020 3:58PM Signed by Dr. Alex Mitchell @ Jan 29 2020 3:59PM
--- NOTE | 2020-01-29 16:00 | CRLCR ---
Indication: Left ankle pain Technique: Left ankle 3 views Comparison: None Findings: Bones: Alignment is normal. No fractures or bone lesions. Joint spaces: Joint spaces are well maintained. No degenerative changes. Soft tissues: Unremarkable. Impression: No findings to explain pain. Dictated by Alex Mitchell MD @ 01/29/2020 3:58:06 PM Dictated by: Alex Mitchell MD @ 01/29/2020 15:58:10 (Electronically Signed)
--- NOTE | 2020-01-29 18:23 | CRLUS ---
INDICATION: Left leg swelling TECHNIQUE: Ultrasound venous duplex lower left extremity. Compression venous exam was performed using keith-scale, color Doppler, and spectral Doppler analysis. COMPARISON: 01/04/2020 FINDINGS: Sonographic imaging demonstrates the left common femoral, deep femoral, superficial femoral, popliteal, posterior tibial and greater saphenous veins to be fully compressible with normal color Doppler blood flow. In 0.0 centimeter x 1.7 centimeters x 2.7 centimeter complex fluid collection medial left calf. IMPRESSION: No evidence of deep venous thrombosis left lower extremity. 10.0 centimeter x 1.7 centimeter x 2.7 centimeter complex fluid collection medial right calf. This is basically unchanged compared to prior exam. Dictated by Alvin Barrios MD @ 01/29/2020 6:22:22 PM Dictated by: Alvin Barrios MD @ 01/29/2020 18:22:29 (Electronically Signed)
== END 2020-01-29 17:40 | disposition home or self-care (01) ==
LOC: JP.ED 13:28
DX: L03.116 Cellulitis of left lower limb (principal); E66.9 Obesity, unspecified; Z68.41 Body mass index [BMI] 40.0-44.9, adult; Z88.5 Allergy status to narcotic agent
CPT/HCPCS: 36415; 73590-LT; 73610-LT; 80053; 83605; 85027; 85379; 85610; 85651; 93971-LT; 99284-25

== ENCOUNTER 2022-01-26 10:25 | Emergency (ER) | payer MEDICAID ==
[2022-01-26 14:31] VITALS: BP 149/82; PULSE 74
== END 2022-01-26 15:30 ==
LOC: JP.ED 10:25
DX: H53.8 Other visual disturbances (principal); E66.9 Obesity, unspecified; Z88.5 Allergy status to narcotic agent; Z72.0 Tobacco use; Z68.41 Body mass index [BMI] 40.0-44.9, adult
CPT/HCPCS: 36415; 70450; 70450-26; 70544; 70544-26; 70551; 70551-26; 80053; 83605; 85025; 93005; 93010; 99283; 99285-25